=== PATIENT | female | born 1965 | race Caucasian/White ===

== ENCOUNTER 2019-04-12 07:07 | Observation (INO) ==
[2019-04-12] MEDS ORDERED: 0.9 % Sodium Chloride 1,000 ML IV ONE (07:12)
[2019-04-12] MEDS ORDERED: D10% in Water 500 ML IV SOLUTION IVC SCH (07:20)
[2019-04-12] MEDS ORDERED: D10% in Water 500 ML IVC SCH (07:30)
[2019-04-12] MEDS ORDERED: *HR* Dextrose 50 % in Water (Syg) 50 ML SYRINGE IVP STA (07:39)
[2019-04-12 08:45] LABS: Basophils # 0.1 K/mcL (0.0-0.2); Basophils % 0.7 %; Eosinophils # 0.1 K/mcL (0.0-0.6); Eosinophils % 0.9 %; Hematocrit 39.8 % (35.3-44.9); Hemoglobin 13.5 g/dL (11.5-15.4); Immature Granulocytes % 0.4 % (0-4); Lymphocytes # 1.2 K/mcL (0.6-4.6); Lymphocytes % 16.8 %; Mean Corpuscular HGB Conc 33.9 g/dL (31.6-35.5); Mean Corpuscular Hemoglobin 29.4 pg (28.0-33.3); Mean Corpuscular Volume 86.7 fL (83.0-100.0); Mean Platelet Volume 11.4 fL (9.4-12.4); Monocytes # 0.7 K/mcL (0.0-1.3); Monocytes % 10.3 %; Neutrophils # 4.9 K/mcL (1.6-8.9); Platelet Count 214 K/mcL (140-400); Red Blood Count 4.59 M/mcL (3.82-4.97); Segmented Neutrophils % 70.9 %; White Blood Count 6.9 K/mcL (4.3-11.1)
[2019-04-12 09:21] LABS: Bilirubin,Urine Negative (Negative); Blood,Urine Negative (Negative); Clarity,Urine Cloudy (Clear); Color,Urine Yellow (Yellow); Glucose,Urine (UA) 250 mg/dL (Normal); Ketones,Urine Negative (Negative); Leukocyte Esterase,Urine Trace (Negative); Nitrite,Urine Negative (Negative); Protein,Urine Negative (Neg-Trace); Specific Gravity,Urine 1.024 (1.010-1.025); Urobilinogen,Urine Normal (Normal)
[2019-04-12 09:24] LABS: Bacteria,Urine Many per hpf (None-Few); Hyaline Casts,Urine None Seen per lpf (None-Few); RBC,Urine 0-3 per hpf (0-3); Squamous Epithelial Cell,Urine Many per lpf (None-Few)
[2019-04-12 09:54] LABS: Amphetamine Screen,Urine Negative ng/mL (Cutoff=1000); Barbiturate Screen,Urine Negative ng/mL (Cutoff=200); Benzodiazepines Screen,Urine Positive ng/mL (Cutoff=200); Cannabinoid Screen,Urine Negative ng/mL (Cutoff = 50); Cocaine Screen,Urine Negative ng/mL (Cutoff= 300); Opiate Screen,Urine Negative ng/mL (Cutoff=300); Phencyclidine Screen,Urine Negative ng/mL (Cutoff=25)
[2019-04-12 10:47] LABS: Alanine Aminotransferase 23 Units/L (7-52); Albumin 3.8 g/dL (3.5-5.7); Albumin/Globulin Ratio 1.6 (1.1-2.2); Alkaline Phosphatase 38 Units/L (34-104); Aspartate Amino Transferase 21 Units/L (13-39); BUN/Creatinine Ratio 25 (6-26); Bilirubin,Direct 0.2 mg/dL (0.0-0.2); Bilirubin,Indirect 0.6 mg/dL (0.0-1.2); Bilirubin,Total 0.8 mg/dL (0.3-1.0); Blood Urea Nitrogen 19 mg/dL (6-20); Calcium 8.7 mg/dL (8.6-10.3); Carbon Dioxide 28 mEq/L (23-29); Chloride 103 mEq/L (98-107); Ethanol < 10 mg/dL (Less than 10); Globulin 2.4 g/dL (2.4-3.5); Glucose 214 mg/dL (70-105); Osmolality,Calculated 295 (280-300); Potassium 3.5 mEq/L (3.5-5.1); Sodium 138 mEq/L (136-145); Total Protein 6.2 g/dL (6.4-8.9); Troponin I < 0.03 ng/mL (< 0.04); eGFR For African Americans > 60 (> 60); eGFR For Non-African Americans > 60 (> 60)
[2019-04-12] MEDS ORDERED: Acetaminophen 325 MG TABLET PO PRN (11:38)
[2019-04-12] MEDS ORDERED: *HR* HYDROcodone/Acet 5/325 mg TABLET PO PRN (11:38)
[2019-04-12] MEDS ORDERED: Ondansetron 4 MG/2 ML VIAL IVP PRN (11:38)
[2019-04-12] MEDS ORDERED: Naloxone 0.4 MG/ML INJ IVP PRN (11:38)
[2019-04-12] MEDS ORDERED: Dextrose Gel 15 GM/37.5 ML TUBE PO PRN ×2 (11:42)
[2019-04-12] MEDS ORDERED: *HR* Dextrose 50 % in Water (Syg) 50 ML SYRINGE IVP PRN (11:42)
[2019-04-12] MEDS ORDERED: D5% in Water 1,000 ML IVC PRN (11:42)
[2019-04-12] MEDS ORDERED: D5% in 0.45% NACL 1,000 ML IVC SCH (11:45)
[2019-04-12 12:42] LABS: Estimated Average Glucose 194 mg/dl
[2019-04-12] MEDS ORDERED: Benzonatate 100 MG CAPSULE PO SCH (15:00)
[2019-04-12] MEDS: Insulin LISPRO 300 UNITS/3 ML VIAL SQ SCH ×3 (15:00→20:50)
[2019-04-12] MEDS ORDERED: ALPRAZolam 1 MG TABLET PO PRN (21:00)
[2019-04-12] MEDS ORDERED: Gabapentin 300 MG CAPSULE PO SCH (21:00)
[2019-04-13] MEDS: Insulin LISPRO 300 UNITS/3 ML VIAL SQ SCH ×4 (00:22→11:56)
[2019-04-13 03:36] LABS: BUN/Creatinine Ratio 19 (6-26); Blood Urea Nitrogen 14 mg/dL (6-20); Calcium 8.6 mg/dL (8.6-10.3); Carbon Dioxide 27 mEq/L (23-29); Chloride 103 mEq/L (98-107); Chol/HDL Ratio 2.4 (0-4.9); Cholesterol 86 mg/dL (< 200); Glucose 285 mg/dL (70-105); HDL Cholesterol 36 mg/dL (40-59); LDL Cholesterol,Calculated 13 mg/dL (0-99); Osmolality,Calculated 297 (280-300); Sodium 138 mEq/L (136-145); Triglycerides 186 mg/dL (< 150); eGFR For African Americans > 60 (> 60); eGFR For Non-African Americans > 60 (> 60)
[2019-04-13] MEDS ORDERED: Fenofibrate 54 MG TABLET PO SCH (09:00)
[2019-04-13] MEDS ORDERED: Lisinopril 20 MG TABLET PO SCH (09:00)
[2019-04-13] MEDS ORDERED: Loratadine 10 MG TABLET PO SCH (09:00)
[2019-04-13] MEDS ORDERED: Metoprolol XL (24 HR) Succ 25 MG TAB.ER.24H PO SCH (09:00)
[2019-04-13 10:59] VITALS: BP 126/70
== END 2019-04-13 14:20 | disposition home or self-care (01) ==
LOC: EMEROOARM 07:07 → 3BNU 07:07 → SUATTDRO 11:40 → 3BNU 12:53
PROVIDERS: ADMIT Internal Medicine; ATTEND Family Medicine

== ENCOUNTER 2020-09-04 12:56 | Inpatient (IN) ==
[2020-09-04] MEDS ORDERED: Isovue-370 500 ML BOTTLE IVP ONE (13:42)
[2020-09-04] MEDS ORDERED: Morphine Sulfate 2 MG/ML SYRINGE IVP STA ×2 (13:42→16:45)
[2020-09-04] MEDS ORDERED: Ondansetron 4 MG/2 ML VIAL IVP STA (13:42)
[2020-09-04 14:44] LABS: Basophils % 0.3 %; Eosinophils # 0.1 K/mcL (0.0-0.6); Eosinophils % 0.9 %; Hematocrit 38.7 % (35.3-44.9); Hemoglobin 13.1 g/dL (11.5-15.4); Immature Granulocytes % 0.8 % (0-4); Lymphocytes # 1.1 K/mcL (0.6-4.6); Lymphocytes % 16.8 %; Mean Corpuscular HGB Conc 33.9 g/dL (31.6-35.5); Mean Corpuscular Hemoglobin 30.2 pg (28.0-33.3); Mean Corpuscular Volume 89.2 fL (83.0-100.0); Mean Platelet Volume 10.2 fL (9.4-12.4); Monocytes # 0.5 K/mcL (0.0-1.3); Monocytes % 7.6 %; Neutrophils # 4.7 K/mcL (1.6-8.9); Platelet Count 294 K/mcL (140-400); Red Blood Count 4.34 M/mcL (3.82-4.97); Red Cell Distribution Width 12.7 % (11.5-14.5); Segmented Neutrophils % 73.6 %; White Blood Count 6.4 K/mcL (4.3-11.1)
[2020-09-04] MEDS ORDERED: 0.9 % Sodium Chloride 1,000 ML IVC ONE (14:49)
[2020-09-04 14:59] LABS: Alanine Aminotransferase 19 Units/L (7-52); Albumin 3.7 g/dL (3.5-5.7); Albumin/Globulin Ratio 1.1 (1.1-2.2); Alkaline Phosphatase 34 Units/L (34-104); Aspartate Amino Transferase 20 Units/L (13-39); BUN/Creatinine Ratio 24 (6-26); Bilirubin,Direct 0.2 mg/dL (0.0-0.2); Bilirubin,Indirect 0.7 mg/dL (0.0-1.0); Bilirubin,Total 0.9 mg/dL (0.3-1.0); Blood Urea Nitrogen 21 mg/dL (6-20); Calcium 8.6 mg/dL (8.6-10.3); Carbon Dioxide 27 mEq/L (23-29); Chloride 99 mEq/L (98-107); Globulin 3.5 g/dL (2.4-3.5); Glucose 222 mg/dL (70-105); Lipase 23 Units/L (11-82); Osmolality,Calculated 294 (280-300); Potassium 2.7 mEq/L (3.5-5.1); Sodium 137 mEq/L (136-145); Total Protein 7.2 g/dL (6.4-8.9); eGFR For African Americans > 60 (> 60); eGFR For Non-African Americans > 60 (> 60)
[2020-09-04] MEDS ORDERED: Potassium Chloride 40 MEQ, Lidocaine 1% 2 ML in 0.9 % Sodium Chloride 500 ML IVPB ONE (16:16)
[2020-09-04] MEDS ORDERED: levoFLOXacin 750 MG/150 ML 750 MG/150 ML BAG IVPB ONE (16:17)
[2020-09-04] MEDS ORDERED: MetroNIDAZOLE 500 MG/100 ML 500 MG/100 ML BAG IVPB ONE (16:17)
[2020-09-04] MEDS ORDERED: Ondansetron 4 MG/2 ML VIAL IVP ONE (16:45)
[2020-09-04] MEDS ORDERED: Dexamethasone 4 MG/ML VIAL IVP ONE (16:46)
[2020-09-04] MEDS ORDERED: Naloxone 0.4 MG/ML INJ IVP PRN ×2 (17:09→17:10)
[2020-09-04] MEDS ORDERED: Ondansetron 4 MG/2 ML VIAL IVP PRN (17:10)
[2020-09-04] MEDS ORDERED: Acetaminophen 325 MG TABLET PO PRN (17:10)
[2020-09-04] MEDS ORDERED: *HR* Dextrose 50 % in Water (Vial) 50 ML VIAL IVP PRN (17:24)
[2020-09-04] MEDS ORDERED: D5% in Water 1,000 ML IVC PRN (17:24)
[2020-09-04] MEDS ORDERED: Dextrose Gel 15 GM/37.5 ML TUBE PO PRN ×2 (17:24)
[2020-09-04 18:48] LABS: Estimated Average Glucose 171 mg/dl; Hemoglobin A1C 7.6 %
[2020-09-04] MEDS: Insulin LISPRO 300 UNITS/3 ML VIAL SUBQ SCH (19:58)
[2020-09-04] MEDS: Insulin DETEMIR 100 UNIT/ML X5UNITS SUBQ SCH (20:06)
[2020-09-04] MEDS: Ringers Solution, Lactated 1,000 ML IVC SCH (20:18)
[2020-09-05] MEDS: Insulin LISPRO 300 UNITS/3 ML VIAL SUBQ SCH ×4 (00:13→16:26)
[2020-09-05] MEDS: MetroNIDAZOLE 500 MG/100 ML 500 MG/100 ML BAG IVPB SCH ×3 (00:18→16:25)
[2020-09-05] MEDS ORDERED: *HR* LORazepam 2 MG/ML VIAL IVP ONE (01:47)
[2020-09-05 04:17] LABS: Basophils % 0.3 %; Eosinophils # 0.1 K/mcL (0.0-0.6); Eosinophils % 1.4 %; Hematocrit 32.3 % (35.3-44.9); Lymphocytes # 0.9 K/mcL (0.6-4.6); Lymphocytes % 14.6 %; Mean Corpuscular HGB Conc 33.7 g/dL (31.6-35.5); Mean Corpuscular Hemoglobin 29.2 pg (28.0-33.3); Mean Corpuscular Volume 86.6 fL (83.0-100.0); Mean Platelet Volume 9.8 fL (9.4-12.4); Monocytes # 0.5 K/mcL (0.0-1.3); Monocytes % 7.5 %; Neutrophils # 4.7 K/mcL (1.6-8.9); Platelet Count 298 K/mcL (140-400); Red Blood Count 3.73 M/mcL (3.82-4.97); Red Cell Distribution Width 12.9 % (11.5-14.5); Segmented Neutrophils % 75.2 %; White Blood Count 6.3 K/mcL (4.3-11.1)
[2020-09-05 04:19] LABS: Hemoglobin 10.9 g/dL (11.5-15.4)
[2020-09-05 04:24] LABS: INR 1.2; Prothrombin Time 13.9 Seconds (9.4-12.1)
[2020-09-05 04:26] LABS: Activated Partial Thrombo Time 22.5 Seconds (26.0-36.0)
[2020-09-05 04:36] LABS: Alanine Aminotransferase 15 Units/L (7-52); Albumin 3.2 g/dL (3.5-5.7); Albumin/Globulin Ratio 1.1 (1.1-2.2); Alkaline Phosphatase 28 Units/L (34-104); Aspartate Amino Transferase 16 Units/L (13-39); BUN/Creatinine Ratio 26 (6-26); Bilirubin,Total 0.6 mg/dL (0.3-1.0); Blood Urea Nitrogen 16 mg/dL (6-20); Calcium 7.9 mg/dL (8.6-10.3); Carbon Dioxide 25 mEq/L (23-29); Chloride 107 mEq/L (98-107); Globulin 2.9 g/dL (2.4-3.5); Glucose 122 mg/dL (70-105); Magnesium 2.3 mg/dL (1.6-2.6); Osmolality,Calculated 294 (280-300); Phosphorous 1.1 mg/dL (2.7-4.5); Potassium 2.8 mEq/L (3.5-5.1); Sodium 141 mEq/L (136-145); Total Protein 6.1 g/dL (6.4-8.9); eGFR For African Americans > 60 (> 60); eGFR For Non-African Americans > 60 (> 60)
[2020-09-05 04:37] LABS: Lactate Dehydrogenase 204 Units/L (140-271)
[2020-09-05 04:56] LABS: Ferritin 146 ng/mL (10-120)
[2020-09-05] MEDS: *HR* Enoxaparin 40 MG/0.4 ML SYRINGE SQ SCH (06:12)
[2020-09-05] MEDS ORDERED: Potassium Chloride 40 MEQ, Lidocaine 1% 2 ML in 0.9 % Sodium Chloride 500 ML IVPB ONE ×2 (06:15→09:50)
[2020-09-05 07:46] LABS: Adenovirus F 40/41 PCR Not detected (Not detect); Astrovirus PCR Not detected (Not detect); C.difficile Toxin A/B Gene PCR Not detected (Not detect); Campylobacter by PCR Not detected (Not detect); Cryptosporidium by PCR Not detected (Not detect); Cyclospora cayetanensis PCR Not detected (Not detect); E. coli O157 by PCR Not detected (Not detect); Entamoeba histolytica PCR Not detected (Not detect); Enteroaggregative E.coli(EAEC) Not detected (Not detect); Enteropathogenic E.coli(EPEC) Not detected (Not detect); Enterotoxigenic E.coli (ETEC) Not detected (Not detect); Giardia lamblia PCR Not detected (Not detect); Norovirus GI/GII PCR Not detected (Not detect); Plesiomonas shigelloides PCR Not detected (Not detect); Rotavirus A PCR Not detected (Not detect); Salmonella PCR Not detected (Not detect); Sapovirus PCR Not detected (Not detect); Shig/EnteroinvasiveE coli EIEC Not detected (Not detect); Shigalike tox-prod E coli STEC Not detected (Not detect); Vibrio PCR Not detected (Not detect); Vibrio cholerae PCR Not detected (Not detect); Yersinia enterocolitica PCR Not detected (Not detect)
[2020-09-05] MEDS: Pantoprazole 40 MG VIAL IVP SCH (07:55)
[2020-09-05] MEDS ORDERED: Potassium Phosphate 44 MEQ in 0.9 % Sodium Chloride 250 ML IVPB ONE (08:35)
[2020-09-05] MEDS: Ringers Solution, Lactated 1,000 ML IVC SCH (10:07)
[2020-09-05] MEDS: Calcium Gluconate 1gm/50mL 1 GM/50 ML BAG IVPB SCH ×2 (10:08→11:15)
[2020-09-05] MEDS: levoFLOXacin 750 MG/150 ML 750 MG/150 ML BAG IVPB SCH (16:25)
[2020-09-05] MEDS ORDERED: Ipratropium 1 PUFF INHALER IH PRN (18:01)
[2020-09-05] MEDS: Gabapentin 300 MG CAPSULE PO SCH (20:28)
[2020-09-05] MEDS: traZODone 50 MG TABLET PO PRN (20:29)
[2020-09-05] MEDS: acetaZOLAMIDE 250 MG TABLET PO SCH (21:02)
[2020-09-05] MEDS: Insulin DETEMIR 100 UNIT/ML X5UNITS SUBQ SCH (21:02)
[2020-09-05] MEDS: Latanoprost 2.5 ML BOTTLE LEFT EYE SCH (21:03)
[2020-09-06] MEDS: Insulin LISPRO 300 UNITS/3 ML VIAL SUBQ SCH ×4 (00:30→17:04)
[2020-09-06] MEDS: MetroNIDAZOLE 500 MG/100 ML 500 MG/100 ML BAG IVPB SCH ×3 (02:09→15:53)
[2020-09-06] MEDS: ALPRAZolam 0.5 MG TABLET PO PRN ×2 (02:19→20:22)
[2020-09-06 04:45] LABS: Basophils % 0.3 %; Eosinophils # 0.1 K/mcL (0.0-0.6); Eosinophils % 2.2 %; Hematocrit 31.8 % (35.3-44.9); Hemoglobin 10.5 g/dL (11.5-15.4); Immature Granulocytes % 1.7 % (0-4); Lymphocytes % 16.4 %; Mean Corpuscular Volume 90.9 fL (83.0-100.0); Mean Platelet Volume 10.1 fL (9.4-12.4); Monocytes # 0.6 K/mcL (0.0-1.3); Monocytes % 9.1 %; Neutrophils # 4.2 K/mcL (1.6-8.9); Nucleated Red Blood Cells 0.3 /100 WBC (0); Platelet Count 290 K/mcL (140-400); Red Cell Distribution Width 13.2 % (11.5-14.5); Segmented Neutrophils % 70.3 %
[2020-09-06 05:04] LABS: Alanine Aminotransferase 11 Units/L (7-52); Alkaline Phosphatase 28 Units/L (34-104); Aspartate Amino Transferase 13 Units/L (13-39); BUN/Creatinine Ratio 16 (6-26); Bilirubin,Total 0.6 mg/dL (0.3-1.0); Blood Urea Nitrogen 11 mg/dL (6-20); Carbon Dioxide 23 mEq/L (23-29); Chloride 107 mEq/L (98-107); Globulin 2.9 g/dL (2.4-3.5); Glucose 161 mg/dL (70-105); Magnesium 2.1 mg/dL (1.6-2.6); Osmolality,Calculated 287 (280-300); Phosphorous 1.1 mg/dL (2.7-4.5); Potassium 2.9 mEq/L (3.5-5.1); Sodium 137 mEq/L (136-145); Total Protein 5.9 g/dL (6.4-8.9); eGFR For African Americans > 60 (> 60); eGFR For Non-African Americans > 60 (> 60)
[2020-09-06 05:07] LABS: Lactate Dehydrogenase 195 Units/L (140-271)
[2020-09-06 05:23] LABS: Ferritin 153 ng/mL (10-120)
[2020-09-06] MEDS: *HR* Enoxaparin 40 MG/0.4 ML SYRINGE SQ SCH (06:21)
[2020-09-06] MEDS ORDERED: Potassium Phosphate 44 MEQ in 0.9 % Sodium Chloride 250 ML IVPB ONE ×2 (08:09→17:59)
[2020-09-06] MEDS ORDERED: Multivit/Ca/Min/Fe/FA 1 TAB TABLET PO SCH (09:00)
[2020-09-06] MEDS: Calcium Gluconate 1gm/50mL 1 GM/50 ML BAG IVPB SCH ×2 (09:01→11:56)
[2020-09-06] MEDS: Aspirin Enteric Coated 81 MG Tablet PO SCH (09:02)
[2020-09-06] MEDS: Pantoprazole 40 MG VIAL IVP SCH (09:02)
[2020-09-06] MEDS: Fenofibrate 54 MG TABLET PO SCH (09:03)
[2020-09-06] MEDS: Latanoprost 2.5 ML BOTTLE LEFT EYE SCH ×2 (09:11→20:24)
[2020-09-06] MEDS: Dexamethasone 4 MG/ML VIAL IVP SCH (11:58)
[2020-09-06 12:30] LABS: ABG Base Excess -3 mEq/L (-2 to 3); ABG HCO3 21 mEq/L (21-27); ABG Oxygen Saturation 92 % (95-98); ABG PCO2 33 mmHg (35-45); ABG PH 7.41 pH Units (7.32-7.45); ABG PO2 63 mmHg (85-104); ABG TCO2 22 mEq/L (20-26)
[2020-09-06 14:32] LABS: Hematocrit 33.2 % (35.3-44.9)
[2020-09-06 14:50] LABS: BUN/Creatinine Ratio 14 (6-26); Blood Urea Nitrogen 10 mg/dL (6-20); Calcium 8.5 mg/dL (8.6-10.3); Carbon Dioxide 20 mEq/L (23-29); Chloride 107 mEq/L (98-107); Glucose 226 mg/dL (70-105); Magnesium 2.3 mg/dL (1.6-2.6); Osmolality,Calculated 288 (280-300); Phosphorous 1.9 mg/dL (2.7-4.5); Potassium 3.6 mEq/L (3.5-5.1); Sodium 136 mEq/L (136-145); eGFR For African Americans > 60 (> 60); eGFR For Non-African Americans > 60 (> 60)
[2020-09-06] MEDS: levoFLOXacin 750 MG/150 ML 750 MG/150 ML BAG IVPB SCH (17:04)
[2020-09-06] MEDS ORDERED: Benzonatate 100 MG CAPSULE PO PRN (17:59)
[2020-09-06] MEDS ORDERED: Saline Nasal Spray 44 ML BOTTLE NS SCH (18:00)
[2020-09-06] MEDS: Ipratropium 1 PUFF INHALER IH SCH ×2 (20:05→22:04)
[2020-09-06] MEDS: Gabapentin 300 MG CAPSULE PO SCH (20:21)
[2020-09-06] MEDS: traZODone 50 MG TABLET PO PRN (20:22)
[2020-09-06] MEDS: acetaZOLAMIDE 250 MG TABLET PO SCH (20:22)
[2020-09-06] MEDS: Insulin DETEMIR 100 UNIT/ML X5UNITS SUBQ SCH (21:51)
[2020-09-07] MEDS: Saline Nasal Spray 44 ML BOTTLE NS SCH ×4 (00:30→10:01)
[2020-09-07 02:27] LABS: Basophils % 0.2 %; Eosinophils % 0.2 %; Hematocrit 33.3 % (35.3-44.9); Hemoglobin 10.8 g/dL (11.5-15.4); Lymphocytes # 0.7 K/mcL (0.6-4.6); Lymphocytes % 13.4 %; Mean Corpuscular HGB Conc 32.4 g/dL (31.6-35.5); Mean Corpuscular Hemoglobin 29.6 pg (28.0-33.3); Mean Corpuscular Volume 91.2 fL (83.0-100.0); Mean Platelet Volume 10.2 fL (9.4-12.4); Monocytes # 0.4 K/mcL (0.0-1.3); Monocytes % 7.4 %; Neutrophils # 3.8 K/mcL (1.6-8.9); Platelet Count 326 K/mcL (140-400); Red Blood Count 3.65 M/mcL (3.82-4.97); Red Cell Distribution Width 13.1 % (11.5-14.5); Segmented Neutrophils % 76.8 %
[2020-09-07 02:54] LABS: % Iron Saturation 15 % (15-50); Alanine Aminotransferase 12 Units/L (7-52); Albumin 3.1 g/dL (3.5-5.7); Alkaline Phosphatase 28 Units/L (34-104); Aspartate Amino Transferase 12 Units/L (13-39); BUN/Creatinine Ratio 17 (6-26); Bilirubin,Total 0.9 mg/dL (0.3-1.0); Blood Urea Nitrogen 13 mg/dL (6-20); C-Reactive Protein 47 mg/L (Less than 10); Calcium 8.3 mg/dL (8.6-10.3); Carbon Dioxide 18 mEq/L (23-29); Chloride 104 mEq/L (98-107); Glucose 406 mg/dL (70-105); Iron 36 mcg/dL (50-170); Lactate Dehydrogenase 193 Units/L (140-271); Osmolality,Calculated 295 (280-300); Phosphorous 3.9 mg/dL (2.7-4.5); Potassium 3.5 mEq/L (3.5-5.1); Sodium 134 mEq/L (136-145); Total Protein 6.1 g/dL (6.4-8.9); Transferrin 176 mg/dL (203-362); eGFR For African Americans > 60 (> 60); eGFR For Non-African Americans > 60 (> 60)
[2020-09-07 03:09] LABS: Ferritin 130 ng/mL (10-120)
[2020-09-07 03:15] LABS: Folate 10.4 ng/mL (3.0-16.0)
[2020-09-07] MEDS ORDERED: Iron Sucrose Complex 400 MG in 0.9 % Sodium Chloride 250 ML IVPB ONE (07:54)
[2020-09-07] MEDS ORDERED: Ipratropium 1 PUFF INHALER IH SCH (08:00)
[2020-09-07] MEDS: Fenofibrate 54 MG TABLET PO SCH (08:54)
[2020-09-07] MEDS: Pantoprazole 40 MG VIAL IVP SCH (08:56)
[2020-09-07] MEDS: Dexamethasone 4 MG/ML VIAL IVP SCH (08:57)
[2020-09-07] MEDS: Aspirin Enteric Coated 81 MG Tablet PO SCH (08:58)
[2020-09-07] MEDS ORDERED: Furosemide 20 MG/2 ML VIAL IVP SCH (09:00)
[2020-09-07] MEDS ORDERED: Furosemide 40 MG/4 ML VIAL IVP SCH (09:00)
[2020-09-07] MEDS ORDERED: lisinopriL 10 MG TABLET PO SCH (09:00)
[2020-09-07] MEDS ORDERED: Multivit/Ca/Min/Fe/FA 1 TAB TABLET PO SCH (09:00)
[2020-09-07] MEDS ORDERED: lisinopriL 20 MG TABLET PO SCH (09:00)
[2020-09-07] MEDS ORDERED: metroNIDAZOLE 500 MG TABLET PO SCH (09:00)
[2020-09-07] MEDS: Insulin LISPRO 300 UNITS/3 ML VIAL SUBQ SCH ×4 (09:08→11:50)
[2020-09-07] MEDS: Latanoprost 2.5 ML BOTTLE LEFT EYE SCH (09:32)
[2020-09-07 11:27] VITALS: BP 126/80
[2020-09-07] MEDS: Calcium Gluconate 1gm/50mL 1 GM/50 ML BAG IVPB SCH ×2 (12:23→13:05)
[2020-09-07] MEDS ORDERED: levoFLOXacin 750 MG TABLET PO SCH (18:00)
[2020-09-07] MEDS ORDERED: Insulin DETEMIR 100 UNIT/ML X5UNITS SUBQ SCH (21:00)
[2020-09-07] MEDS ORDERED: Insulin LISPRO 300 UNITS/3 ML VIAL SUBQ SCH (21:00)
== END 2020-09-07 14:40 | disposition left against medical advice (07) | DRG 177 ==
LOC: 3BNU 12:56 → EMEROOARM 12:56 → 3BNU 17:11 → SUATTDRO 17:12 → 3BNU 19:37
PROVIDERS: ADMIT Internal Medicine; ATTEND Internal Medicine